=== PATIENT | male | born 1935 | race Caucasian/White ===

== ENCOUNTER 2017-11-03 09:45 | Outpatient (CLI) | payer MEDICARE ==
[~2017-11-03] VITALS: Ht 180.3 cm; Wt 113.6 kg
--- NOTE | ~2017-11-03 | HEMODYNAMI ---
PATIENT:DORETHA LOGAN MEDICAL RECORD: [id number] : 37 LOCATION:D.CAT ADMISSION DATE: 11/03/17 Generatedon:11/03/201712:19 Patient name: DORETHA LOGAN Patient #: [id number] SSN: : 1935 Date of study: 11/03/2017 Page: Of Hemodynamic Procedure Report Patient Data Patient Demographics Procedure consent was obtained First Name: DORETHA Gender: Male Last Name: DESMOND : 1935 Middle Initial: C Age: 81 year(s) Patient #: [id number] Race: Unknown Additional ID: [id number] Contact details [address]: [address] [place] [address] State: [place] City: [place] Zip code: [address] Past Medical History Allergies: No known allergies Admission Admission Data Admission Date: 11/03/2017 Admission Time: 9:45 Procedure Procedure Types Cath Procedure Diagnostic Procedure Cardioversion Procedure Description Procedure Date Procedure Date: 11/03/2017 Procedure Start Time: 12:11 Procedure End Time: 12:17 Procedure Staff Name Function You Little MD Performing Physician Florian Suarez RN Nurse Evans Baldwin MD Additional personnel Veronica Andres RT Monitor Procedure Data Cath Procedure Estimated blood loss: 0 ml Procedure Complications No complications Procedure Medications Medication Administration Route Dosage 0.9% NaCl I.V. 100 ml/hr Oxygen NC 2 l/min Refer to Anesthesia Notes for Sedation Medications Hemodynamics Rest Pre Cath Intra NCS Post Cath Vital Signs Time Heart Resp SPO2 etCO2 NIBP (mmHg) Rhythm Pain Sedation Rate (ipm) (%) (mmHg) Status Level (bpm) 12:07:45 66 35 99 39.7 155/82(125) NSR 0 (11) 10(A) , No pain 12:12:38 46 16 96 8.2 108/58(87) NSR 0 (11) 9(A) , No pain 12:16:58 44 15 97 25.5 113/45(89) NSR 0 (11) 10(A) , No pain Medications Time Medication Route Dose Verified Delivered Reason Notes Effectiven ess by by 12:07:12 0.9% NaCl I.V. 100 You Du used for ml/hr Sidney Suarez RN procedure 12:07:21 Oxygen NC 2 You Du Per l/min Sidney Suarez RN physician 12:07:30 Refer to You Orta Anesthesia Sidney Little MD Notes for Sedation Medications Procedure Log Time Note 12:00:22 Florian Suarez RN sent for patient. Start room use. 12:04:27 Time tracking: Regular hours 12:04:30 Plan of Care:Hemodynamics will remain stable., Cardiac rhythm will remain stable., Comfort level will be maintained., Respiratory function will remain adequate., Patient/ family verbilizes understanding of procedure., Procedure tolerated without complication., Recovers from procedure without complications.. 12:04:34 Patient received from Pre/Post Procedure Room to CCL 2 Alert and oriented. Tansferred to table in Supine position. 12:04:35 Warm blankets applied, and octavio hugger turned on for patient comfort. 12:04:35 Correct patient and procedure confirmed by team. 12:04:36 Signed procedure consent form obtained from patient. 12:04:37 ECG and BP/O2 sat monitors applied to patient. 12:04:54 Rhythm: atrial fibrillation 12:04:56 Full Disclosure recording started 12:05:07 H&P Date Dictated: 11/03/2017 Within 30 days and on chart., H&P Addendum completed by physician on day of procedure. (MUST COMPLETE FOR ALL OUTPATIENTS). 12:05:08 Pre-procedure instructions explained to patient. 12:05:08 Pre-op teaching completed and patient verbalized understanding. 12:05:11 Family in waiting room. 12:05:12 Patient NPO since Midnight. 12:05:20 Patient allergic to No known allergies 12:05:27 Patient diabetic? No. 12:05:30 ----Pre-sedation anethsthesia assessment.---- 12:05:47 SEE ANESTHESIA NOTES FOR PRE ASSESSMENT 12:05:53 Patient pain scale 0/10 ?. 12:05:59 IV patent on arrival in left forearm with 0.9% NaCl at O. 12:06:02 Lab results completed and on chart. 12:06:05 Alarms reviewed by Aba Benítez 12:06:06 Final Timeout: patient, procedure, and site verified with staff and physician. All members of the team are in agreement. 12:06:11 Physical assessment completed. ASA score P 2 - A patient with mild systemic disease as per You Little MD. 12:06:15 Sedation plan: TIVA Medication:Propofol 12:06:19 Evans Baldwin MD present and monitoring patient for TIVA. 12:06:21 Quick combo pads placed on patients chest and back. 12:06:31 Vital chart was started 12:07:12 0.9% NaCl 100 ml/hr I.V. was administered by Florian Suarez RN; used for procedure; 12:07:21 Oxygen 2 l/min NC was administered by Florian Suarez RN; Per physician; 12:07:30 Refer to Anesthesia Notes for Sedation Medications was administered by You Little MD; ; 12:09:03 --------ALL STOP TIME OUT------ 12:11:13 Procedure started. 12:11:26 Defibrillator synced and charged to 200 Joules. 12:11:31 Shock delivered. 12:11:55 275 joules 12:12:16 Patient cardioverted to sinus rhythm . 12:12:26 Procedure ended.(Physican Out) 12:15:20 Post procedure rhythm: sinus rhythm 12:15:23 Estimated blood loss: 0 ml 12:15:24 Post procedure instruction explained to patient.Patient verbalizes understanding. 12:15:32 Procedure and supply charges have been captured, reviewed, submitted and are correct. 12:16:49 Procedure Complication : No complications 12:16:57 Report given to Pre/Post Procedure Room. 12:17:00 Patient transfered to Pre/Post Procedure Room with Stretcher. 12:17:02 Procedure ended. 12:17:02 Full Disclosure recording stopped 12:17:05 End room use (Document Last) 12:19:47 Vital chart was stopped Signature Audit [place] Stage Time Signature Unsigned Intra-Procedure 11/03/2017 Veronica Andres 12:19:45 PM RT(R) Signatures Monitor : Veronica Andres Signature : RT Date : Time : [facility] [address] [place] [address]
[2017-11-03] MEDS ORDERED: GLUCOPHAGE500 MG PO (10:15)
[2017-11-03] MEDS ORDERED: LEVOTHYROXINE50 MCG PO (10:15)
[2017-11-03] MEDS ORDERED: LIPITOR20 MG PO (10:15)
[2017-11-03] MEDS ORDERED: ZOLOFT100 MG PO (10:16)
[2017-11-03] MEDS ORDERED: BETAPACE 80 MG80 MG PO (10:16)
[2017-11-03] MEDS ORDERED: XARELTO20 MG PO (10:17)
[2017-11-03] MEDS ORDERED: ZESTRIL20 MG PO (10:17)
[2017-11-03 10:23] VITALS: BP 129/54; Ht 180.3 cm; Wt 113.6 kg
[2017-11-03 10:37] LABS: BASOPHILS 0.5 % (0-2); EOSINOPHILS 4.7 % (0-7); HEMATOCRIT 42.6 % (42.0-54.0); HEMOGLOBIN 13.5 g/dL (13.5-17.5); IMMATURE GRANULOCYTES 0.3 % (0-5); LYMPHOCYTES 25.8 % (15-50); MCH 30.6 pg (26.0-34.0); MCHC 31.7 g/dL (31.0-37.0); MCV 96.6 fL (80.0-100.0); MONOCYTES 7.2 % (2-11); NEUTROPHILS 61.5 % (40-80); PLATELET COUNT 176 10x3/uL (130-400); RBC 4.41 10x6/uL (4.20-6.10); RDW 13.4 % (11.5-14.5); WBC 7.7 10x3/uL (4.8-10.8)
[2017-11-03 10:43] LABS: INR 1.46 (0.85-1.17); PROTIME 17.2 SECONDS (11.6-15.0)
[2017-11-03 10:47] LABS: ANION GAP 13.3 mmol/L (8-16); CALCIUM 8.5 mg/dL (8.5-10.1); CARBON DIOXIDE 28.1 mmol/L (21.0-32.0); CREATININE - SERUM 1.2 mg/dL (0.6-1.3); POTASSIUM - SERUM 4.4 mmol/L (3.5-5.1)
--- NOTE | 2017-11-03 12:25 | NUR ---
1225 RECEIVED PT FROM LEARNING DEVELOPMENT SPECIALIST. PT IS ALERT. RR EVEN AND UNLABORED ON ROOM AIR. SINUS BRADYCARDIA WITH RATE OF 52, DENIES ANY C/O CHEST DISCOMFORT. BP IS 102/55. FAMILY AT BEDSIDE. CALL LIGHT IN REACH.
--- NOTE | 2017-11-03 12:44 | NUR ---
DIET SODA SERVED PER PT REQUEST. DR WILKINS HAS ROUNDED ON PT. PT DENIES ANY C/O. FAMILY AT BEDSIDE. CALL LIGHT IN REACH.
--- NOTE | 2017-11-03 13:00 | NUR ---
1300 PT DENIES ANY C/O. MUNA PO FLUIDS WITH NO C/O NAUSEA. AT BEDSIDE, CALL LIGHT IN REACH.
--- NOTE | 2017-11-03 13:30 | NUR ---
1330 IV DC'D WITH CATH INTACT. PT DENIES ANY C/O. SINUS BRADYCARDIA, RATE 54. PT DRESSING FOR DC TO HOME.
--- NOTE | 2017-11-03 13:47 | NUR ---
PT DRESSED FOR DC TO HOME. DENIES ANY C/O. REVIEWED DC INSTRUCTIONS WITH PT WHO VERBALIZES UNDERSTANDING. PT ESCORTED TO PRIVATE AUTO VIA WC BY NURSE WITH DRIVING HIM HOME.
--- NOTE | 2017-11-04 12:15 | HP ---
PATIENT: DORETHA BUSCH MEDICAL RECORD: [id number] ACCOUNT: [id number] LOCATION:JACIEL : 37 ADMISSION DATE: 11/03/17 HISTORY AND PHYSICAL EXAMINATION DIAGNOSIS: Atrial fibrillation. HISTORY OF PRESENT ILLNESS: Mr. Busch presents with atrial fibrillation. He has been on pharmacotherapy as well as anticoagulation, now for DC cardioversion. PHYSICAL EXAMINATION: GENERAL APPEARANCE: Well-nourished, well-developed, appears stated age. Level of distress, comfortable. PSYCHIATRIC: Mental status, alert, normal affect. Orientation, oriented to time, place and person. EYES: Lids and conjunctiva, noninjected. No discharge, no pallor. ENT: Lips, teeth, gums, normal dentition. Oropharynx, no cyanosis, no pallor. NECK: Carotid arteries, bilateral normal upstroke, no bruits, no thrills. JUGULAR VEINS: No jugular venous pressure or distention. CERVICAL LYMPH NODES: Nontender, nonenlarged. THYROID: Not enlarged. Nontender. No nodules. LUNGS: Respiratory effort, unlabored. CHEST: Normal curvature. No thoracic deformity. No chest wall tenderness. Percussion, resonant. Auscultation, clear. No wheezes, no rales, no rhonchi. CARDIOVASCULAR: Precordial exam, nondisplaced. No heaves or pericardial thrills. Rate and rhythm, regular. Heart sounds, normal S1, normal S2. No S3, no gallop, no rub. Systolic murmur, not heard. Diastolic murmur, not heard. EXTREMITIES: No cyanosis, no edema. Peripheral pulses, full and equal in all extremities, except as noted. No bruits appreciated. ABDOMEN: Soft, nondistended. Normal aorta. No bruit. Nontender. No masses. Liver, nontender, no hepatomegaly. Spleen, nontender, no splenomegaly. MUSCULOSKELETAL: No joint tenderness. No joint swelling. No erythema. NEUROLOGICAL: Normal gait, normal strength, normal tone. SKIN: Warm and dry. REVIEW OF SYSTEMS: The patient reports easy bruising but reports no swollen glands. The patient reports no fever, no night sweats, no significant weight gain, no significant weight loss. No significant exercise tolerance. The patient reports no dry eyes, no irritation, no vision change. Patient reports no difficulty hearing and no ear pain. Patient reports no frequent nose bleeds or nose and sinus problems. Patient reports on arm pain on exertion. No shortness of breath while lying down. No history of heart murmur. Patient reports no cough, no wheezing or coughing up blood. Patient reports no abdominal pain, no vomiting. Normal appetite. No diarrhea and not vomiting blood. No nausea and no constipation. Patient reports no incontinence. No difficulty urinating. No hematuria. No increased frequency. Patient reports no muscle aches. No weakness, no arthralgias, no back pain. No swelling of the extremities. Patient reports no abnormal mole, no jaundice, no rashes. Reports no loss of consciousness. No weakness and no numbness. No seizures, dizziness, or headaches. The patient reports no depression, no sleep disturbance, feeling safe in a relationship and no alcohol abuse. Patient reports on fatigue. Reports no runny nose or sinus pressure. No itching, no hives, and no frequent sneezing. HISTORY AND PHYSICAL [id number] DORETHA BUSCH OVERALL IMPRESSION: Atrial fibrillation. We will proceed with DC cardioversion. TRANSINT:[id number] Voice Confirmation ID: [id number] DOCUMENT ID: [id number] SOLANGE WILKINS MD at 1215 CC: [id number] DICTATION DATE: 11/03/17 0953 COACH PROFESSIONAL ATHLETES: 11/03/17 1012 DEP CLI 11/03/17 [id number] [place] [address]
--- NOTE | 2017-11-04 12:17 | OP ---
PATIENT NAME: DORETHA LOGAN MEDICAL RECORD: [id number] :37 LOCATION:D.CAT ADMISSION DATE: SURGEON: SOLANGE WILKINS MD DATE OF OPERATION: 11/03/2017 PROCEDURE: DC cardioversion. INDICATION: Atrial fibrillation. PROCEDURE IN DETAIL: IV conscious sedation was per anesthesia. Continuous heart rate, O2 saturation, blood pressure monitoring all undertaken, all of which remains stable. He received 1 shock at 275 joules restoring sinus rhythm. OVERALL IMPRESSION: Successful DC cardioversion from atrial fibrillation to sinus rhythm. TRANSINT:[id number] Voice Confirmation ID: [id number] DOCUMENT ID: [id number] SOLANGE WILKINS MD at 1217 CC: [id number] DICTATION DATE: 11/03/17 1229 COOKER TENDER: 11/03/17 1237 DEP CLI 11/03/17 [id number] [place] [address]
== END 2017-11-03 13:45 | disposition home or self-care (01) ==
LOC: D.CATH 09:45
PROVIDERS: Internal Medicine Interventional Cardiology
DX: I48.91 Unspecified atrial fibrillation (principal); F17.200 Nicotine dependence, unspecified, uncomplicated; I10 Essential (primary) hypertension; E11.9 Type 2 diabetes mellitus without complications; E03.9 Hypothyroidism, unspecified; Z01.812 Encounter for preprocedural laboratory examination